=== PATIENT | female | born 1970 | race African-American/Black ===

== ENCOUNTER 2017-11-09 08:57 | Emergency (ER) | payer OTHER ==
[~2017-11-09] VITALS: Ht 162.6 cm; Wt 66.0 kg
[2017-11-09] MEDS ORDERED: METHYLPREDNISOLONE SOD SUCC 125 MG/2 ML VIAL IV ONE (09:30)
[2017-11-09] MEDS ORDERED: DIPHENHYDRAMINE 50MG/ML VIAL IV ONE (09:30)
[2017-11-09] MEDS ORDERED: FAMOTIDINE 20MG/2ML VIAL IV ONE (09:30)
[2017-11-09 11:31] VITALS: BP 153/91
== END 2017-11-09 11:33 | disposition home or self-care (01) ==
LOC: ER 08:57
DX: T78.3XXA Angioneurotic edema, initial encounter (principal); T46.1X5A Adverse effect of calcium-channel blockers, initial encounter; T46.4X5A Adverse effect of angiotensin-converting-enzyme inhibitors, initial encounter; Y92.89 Other specified places as the place of occurrence of the external cause; I10 Essential (primary) hypertension
CPT/HCPCS: 96374; 96375; 99284; J1200; J2930; J3490